=== PATIENT | female | born 1960 | race Caucasian/White ===

== ENCOUNTER → 2020-03-15 10:42 | Outpatient (CLI) | payer BC, SELFPAY ==
--- NOTE | ~2020-03-15 | XR_ITS ---
EXAMINATION: XR lumbar spine 2-3V DATE: 03/15/2020 11:05 INDICATION: Low back pain TECHNIQUE: Anteroposterior and lateral views of the lumbar spine, and cone-down lateral view of the l umbosacral junction were obtained. COMPARISON: None. FINDINGS: There are 18 degrees of lumbar levoscoliosis. There is no fracture. There is mild of interv ertebral disc space height throughout the lumbar spine. Small degenerative osteophytes project from t he anterior endplates of multiple vertebral bodies. There is moderate facet osteoarthritis of the low er lumbar spine. Surgical clips in the right upper quadrant are likely from prior cholecystectomy. IMPRESSION: 1. Mild lumbar spondylosis without acute findings. Reviewed, dictated and finalized at location A. 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
== END ==
PROVIDERS: PCP Family Medicine; Visit Provider Family Medicine
DX: M47.896 Other spondylosis, lumbar region (principal)
CPT/HCPCS: 72100

== ENCOUNTER → 2020-07-11 09:15 | Outpatient (CLI) | payer BC, SELFPAY ==
--- NOTE | ~2020-07-11 | XR_ITS ---
EXAMINATION: HAND-JAMAAL ARTHRITIS 3+VIEWS DATE: 07/11/2020 09:39 INDICATION: Bilateral hand pain TECHNIQUE: Posteroanterior, lateral, and oblique views of the left and of the right hands as well as a ballcatchers view of both hands were obtained. COMPARISON: None. FINDINGS: Bone alignment is normal. No fracture. Polyarticular osteoarthritis characterized by nonuniform joint space narrowing and/or small marginal osteophytes, moderate severity at the lateral first carpal met acarpal joints and mild at the bilateral triscaphe, bilateral first metacarpophalangeal and multiple bilateral predominantly distal interphalangeal joints. No erosions to suggest an inflammatory arthrit is. IMPRESSION: 1. Polyarticular osteoarthritis with typical distribution in both hands, moderate severity at the jamaal ateral first carpal metacarpal joints and otherwise mild. Reviewed, dictated and finalized at location B. 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 Polyarticular osteoarthritis with typical distribution in both hands, modera te severity at the bilateral first carpal metacarpal joints and otherwise mild.
== END ==
PROVIDERS: PCP Family Medicine; Visit Provider Physician Assistant Medical
DX: M19.041 Primary osteoarthritis, right hand (principal); M19.042 Primary osteoarthritis, left hand
CPT/HCPCS: 73130

== ENCOUNTER 2021-02-24 15:35 | Emergency (ER) | payer OTHER, BC, SELFPAY ==
--- NOTE | ~2021-02-24 | XR_ITS ---
EXAMINATION: XR wrist RT min 3V DATE: 02/24/2021 16:07 INDICATION: Ulnar sided right wrist pain. Wrist injury. TECHNIQUE: 4 views of right wrist were obtained. COMPARISON: Right hand radiographs 07/11/2020 FINDINGS: Bone alignment is normal. No fracture. There is mild osteoarthritis of first carpometacarpa l joint. IMPRESSION: 1. Mild osteoarthritis of first carpometacarpal joint. Reviewed, dictated and finalized at location A.
[2021-02-24 15:48] VITALS: BP 137/74; PULSE 68; RESP 20; TEMP 36.6; O2SAT 99
--- NOTE | 2021-02-24 16:14 | ED.UPPEXIN ---
HPI - Extremity Injury (Upper) General Chief Complaint: Extremity Injury, Upper Stated Complaint: right wrist pain Time Seen by Provider: 02/24/21 16:14 Source: patient Mode of arrival: ambulatory Limitations: no limitations History of Present Illness HPI narrative: Irene Levi is a 60 yo female with a PMH of hypertension who comes to [facility] with a painful right wrist and fingers 4 and 5 due to hitting arm on counter yesterday at work. Related Data Home Medications Medication Instructions Recorded Confirmed alprazolam 0.5 mg tablet 0.5 mg PO BID PRN 05/30/20 02/24/21 zonisamide 50 mg capsule 100 mg PO DAILY cap 05/30/20 02/24/21 Allergies Allergy/AdvReac Type Severity Reaction Status Date / Time morphine Allergy Severe CHEST PAIN Verified 02/24/21 16:01 HYDROCODONE BIT AdvReac Unknown N/V Uncoded 02/24/21 16:01 Review of Systems Review of Systems: CONSTITUTIONAL: Denies fever, chills, sweats. EYES: Denies visual changes, redness, discharge. ENT: Denies rhinorrhea, congestion, sore throat, otalgia. CARDIOVASCULAR: Denies chest pain, palpitations, edema. RESPIRATORY: Denies dyspnea, wheezing, cough GASTROINTESTINAL: Denies abdominal pain, nausea, vomiting, diarrhea. GENITOURINARY: Denies dysuria, hematuria, abnormal discharge SKIN: Denies rash or itching. NEUROLOGIC: Denies numbness, or focal weakness. PSYCHIATRIC: Denies anxiety or depression. 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 There is no relevant family history pertinent to the presenting complaint. Exam Narrative: GENERAL: This is a well-nourished, well-developed patient, in mild distress. HEAD: normocephalic, atraumatic. EYES: Sclera clear/white. Vision is grossly intact. EARS: External ears normal. Hearing grossly intact. NOSE: External nose normal without nasal discharge, nares without redness, no rhinorrhea. THROAT: Mucous membranes moist, NECK: Neck supple, non-tender CARDIOVASCULAR: Regular rate and rhythm without murmurs, gallops, or rubs. RESPIRATORY: Clear to auscultation. Breath sounds equal bilaterally. No wheezes, rales, or rhonchi. GASTROINTESTINAL: Abdomen soft, SKIN: warm, intact with no suspicious lesions or rash, good texture and turgor. NEURO: awake, alert, and oriented to person, place and time. There were no obvious focal neurologic abnormalities. Steady gait EXTREMITIES: Normal range of motion. Right lateral wrist has swelling around the radius, erythema, feels weaker finger 4 and 5 although able to move the fingers BACK: Nontender without deformity Course Course Emergency Course: Patient comes for evaluation of right wrist pain after hitting it yesterday at work stating that it hurts when she tries to lift with X-ray of right wrist shows no fracture, there is mild osteoarthritis of the first carpometacarpal joint Ananth wrap placed on wrist given directions for rice and to use Tylenol for pain relief (has hypertension so should not use ibuprofen) Vital Signs Vital signs: Vital Signs Temperature 97.8 F 02/24/21 15:48 Pulse Rate 68 02/24/21 15:48 Respiratory Rate 20 02/24/21 15:48 Blood Pressure 137/74 02/24/21 15:48 Pulse Oximetry 99 02/24/21 15:48 Te
== END 2021-02-24 16:40 | disposition home or self-care (01) ==
PROVIDERS: Emergency Provider Nurse Practitioner
DX: M25.531 Pain in right wrist (principal); M19.072 Primary osteoarthritis, left ankle and foot; E66.01 Morbid (severe) obesity due to excess calories; Z68.41 Body mass index [BMI] 40.0-44.9, adult; G61.9 Inflammatory polyneuropathy, unspecified
CPT/HCPCS: 73110; 99213; G0463

== ENCOUNTER 2021-04-19 15:29 | Emergency (ER) | payer BC, SELFPAY ==
[2021-04-19 15:44] VITALS: BP 139/84; PULSE 73; RESP 20; TEMP 35.9; O2SAT 99
--- NOTE | 2021-04-19 16:21 | ED.LOWEXIN ---
HPI - Extremity Injury (Lower) General Chief Complaint: Extremity Injury, Lower Stated Complaint: let foot pain Source: patient and RN notes reviewed Mode of arrival: ambulatory History of Present Illness HPI Narrative: This is a 58-year-old female who presents to urgent care with complaints of left foot pain according to patient she has a history of arthritis that she normally takes Tylenol to relieve her pain this time he did not relieve her pain. Patient notes that her pain was so bad that she had to come here to our . Patient denies any type of injury to the affected foot she notes that when she flex her foot upward her pain increases. Related Data Allergies Allergy/AdvReac Type Severity Reaction Status Date / Time morphine Allergy Severe CHEST PAIN Verified 04/19/21 15:35 HYDROCODONE BIT AdvReac Unknown N/V Uncoded 04/19/21 15:35 Review of Systems Review of Systems: A 14 organ system Review of Systems was performed and pertinent positives included in the HPI, otherwise remaining ROS is negative. 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 HEAD: normocephalic, atraumatic. EYES: PERRL. Sclera clear/white. Vision is grossly intact. EARS: External ears normal, auditory canals clear and without drainage, TMs normal without perforation. Hearing grossly intact. NOSE: External nose normal with no obvious nasal discharge, nares without redness, no rhinorrhea. THROAT: Mucous membranes moist, posterior pharynx clear. NECK: Neck supple, non-tender without lymphadenopathy, masses or thyromegaly. CARDIOVASCULAR: Regular rate and rhythm without murmurs, gallops, or rubs. RESPIRATORY: Clear to auscultation. Breath sounds equal bilaterally. No wheezes, rales, or rhonchi. GASTROINTESTINAL: Abdomen soft, non-tender, nondistended. Bowel sounds are active. No hepato-splenomegaly, or palpable masses. No guarding. SKIN: warm, intact with no suspicious lesions or rash, good texture and turgor. NEURO: awake, alert, and oriented to person, place and time. There were no obvious focal neurologic abnormalities. Steady gait EXTREMITIES: Limited range of motion to the left foot tenderness to the top of the foot. no edema. No calf tenderness. Negative Homans sign bilaterally. No neurovascular deficiency noted, no obvious injury, capillary refill within normal limits, pulses palpable BACK: Nontender without deformity or crepitance. No flank tenderness. Course Course Emergency Course: Patient will be treated for arthritis with tramadol and Flexeril. Vital Signs Vital signs: Vital Signs Temperature 96.6 F L 04/19/21 15:44 Pulse Rate 73 04/19/21 15:44 Respiratory Rate 20 04/19/21 15:44 Blood Pressure 139/84 04/19/21 15:44 Pulse Oximetry 99 04/19/21 15:44 Temperature 96.6 F L 04/19/21 15:44 Pulse Rate 73 04/19/21 15:44 Respiratory Rate 20 04/19/21 15:44 Blood Pressure 139/84 04/19/21 15:44 Pulse Oximetry 99 04/19/21 15:44 MDM - Extremity Injury (Lower) Differential Diagnosis Differential diagnosis: Likely ankle sprain and strain, acute internal derangement of knee and other (Arthritis) Discharge Plan Discharge Clinical Impression: Arthritis of foot, left Patient Disposition: Home, Self-Care Condition: Stable Instructions: Antibiot
== END 2021-04-19 16:50 | disposition home or self-care (01) ==
PROVIDERS: Emergency Provider Nurse Practitioner; PCP Family Medicine
DX: M19.072 Primary osteoarthritis, left ankle and foot (principal); E66.01 Morbid (severe) obesity due to excess calories; Z68.41 Body mass index [BMI] 40.0-44.9, adult; G62.9 Polyneuropathy, unspecified
CPT/HCPCS: 99213; G0463

== ENCOUNTER 2023-09-18 14:10 | Outpatient (CLI) | payer OTHER, SELFPAY ==
--- NOTE | ~2023-09-18 | MR_ITS ---
EXAMINATION: MR brain/brain stem wo con DATE: 09/18/2023 15:40 INDICATION: Chronic migraine without aura. Not intractable. TECHNIQUE: Magnetic resonance imaging (MRI) of the brain and brainstem was performed without intraven ous contrast. COMPARISON: Brain MRI 12/22/2015 FINDINGS: There are scattered areas of nonspecific increased T2-weighted signal intensity in the cere bral white matter, which is within normal limits for the patient's age. There is no intracranial hemo rrhage, acute infarction, or abnormal intracranial mass lesion. The ventricles are normal in size. Th e paranasal sinuses are clear. The mastoid air cells are normal. There are likely changes of ocular l ens replacement surgeries. IMPRESSION: 1. Normal aging brain. Reviewed, dictated and finalized at location A. IMPRESSION: 1. Normal aging brain.
[2023-09-18 16:51] LABS: Hematocrit 39.5 % (37.0-47.0); Hemoglobin 11.9 g/dL (12.0-15.0); Mean Corpuscular HGB Conc 30.1 g/dl (32-36); Mean Corpuscular Hemoglobin 24.5 pg (26-34); Mean Corpuscular Volume 81.3 fl (80-100); Mean Platelet Volume 11.5 fl (7.4-10.4); Platelet Count Result 324 k/mm3 (150-375); Red Blood Count 4.86 M/mm3 (4.2-5.4); Red Cell Distribution Width 16.6 % (11.5-14.5); White Blood Count 10.4 K/mm3 (4.5-10.0)
[2023-09-18 17:16] LABS: Iron 52 ug/dL (37-170)
[2023-09-18 17:26] LABS: Percent Iron Saturation 12 % (20-50)
== END 2023-09-18 14:11 | disposition home or self-care (01) ==
PROVIDERS: PCP Family Medicine; Visit Provider Nurse Practitioner Adult Health
DX: D64.9 Anemia, unspecified (principal); G43.709 Chronic migraine without aura, not intractable, without status migrainosus
CPT/HCPCS: 36415; 70551; 83540; 83550; 85027

== ENCOUNTER 2023-11-20 12:21 | Outpatient (CLI) | payer OTHER, SELFPAY ==
--- NOTE | ~2023-11-20 | MM_ITS ---
EXAMINATION: MM screening amelia BI w albert HISTORY: Screening TECHNIQUE: Craniocaudal and mediolateral oblique 3-D tomosynthesis images were obtained and synthetic 2-D images were generated. CAD analysis was submitted and interpreted. COMPARISON: No prior studies for comparison. BREAST PARENCHYMAL COMPOSITION: Not Dense: Breast are almost entirely fatty. FINDINGS: There are small scattered masses in the left breast. There are no suspicious masses, calcif ications or architectural distortion in the right breast to suggest malignancy. IMPRESSION: 1. Small scattered left breast masses. 2. Additional mammographic views and possible breast ultrasound are recommended. BI-RADS Category 0: Incomplete: Needs additional imaging evaluation. Reviewed, dictated and finalized at location B. IMPRESSION: 1. Small scattered left breast masses. 2. Additional mammographic views and possible breast ultrasound are recommended . BI-RADS Category 0: Incomplete: Needs additional imaging evaluation.
== END 2023-11-20 12:22 ==
LOC: MICIMG 12:22
PROVIDERS: PCP Family Medicine; Visit Provider Nurse Practitioner Adult Health
DX: Z12.31 Encounter for screening mammogram for malignant neoplasm of breast (principal); R92.8 Other abnormal and inconclusive findings on diagnostic imaging of breast
CPT/HCPCS: 77063; 77067

== ENCOUNTER 2023-12-17 08:46 | Outpatient (CLI) | payer OTHER, SELFPAY ==
--- NOTE | ~2023-12-17 | MMUS_ITS ---
EXAMINATION: MM diagnostic amelia LT w albert, US breast LT complete HISTORY: Follow-up left breast masses TECHNIQUE: Additional 3-D tomosynthesis images of Not dense: There are scattered areas of fibroglandu lar density. were performed and synthetic 2-D images were generated. CAD analysis was submitted and i nterpreted. High resolution complete left breast ultrasound was performed. COMPARISON: 11/20/2023 BREAST PARENCHYMAL COMPOSITION: Not dense: There are scattered areas of fibroglandular density. FINDINGS: MAMMOGRAPHIC FINDINGS: There is a small cluster of masses in the upper outer quadrant of the left breast, middle third. Ther e is a small irregular nodule which appears to be at the skin surface in the lower outer quadrant of the left breast, middle third. There are no suspicious calcifications or architectural distortion. ULTRASOUND: Complete US of all 4 quadrants of the left breast and retroareolar region was reviewed. At 2:00, 8 cm from the nipple there is a 2 mm cyst likely corresponding to be mammographic finding in the upper ou ter quadrant. No correlate is identified for the lesion in the lower outer quadrant near the skin kameron face, likely benign. IMPRESSION: 1. Probable benign findings. 2. Recommend 6 month follow-up diagnostic left mammogram and left breast ultrasound. BI-RADS category 3, probably benign findings. Reviewed, dictated and finalized at location B. IMPRESSION: 1. Probable benign findings. 2. Recommend 6 month follow-up diagnostic left mammogram and left breast ultras ound. BI-RADS category 3, probably benign findings.
== END 2023-12-17 08:47 ==
LOC: MICIMG 08:47
PROVIDERS: PCP Family Medicine; Visit Provider Nurse Practitioner Adult Health
DX: N63.20 Unspecified lump in the left breast, unspecified quadrant (principal); R92.8 Other abnormal and inconclusive findings on diagnostic imaging of breast
CPT/HCPCS: 76641; 77061; 77065; G0279

== ENCOUNTER 2024-04-15 11:20 | Outpatient (CLI) | payer OTHER, SELFPAY ==
--- NOTE | ~2024-04-15 | XR_ITS ---
3 VIEWS LUMBAR SPINE Ordering provider: [place] Arriola NP History: . M54.9 - Dorsalgia, unspecified . Comparison: None. FINDINGS: VERTEBRAL BODIES:Levoscoliosis. Degenerative changes of the spine. No visible fracture or subluxatio n. DISK SPACES: Mild narrowing of the disc L4-L5. Otherwise, normal. Multilevel facet joint disease. SOFT TISSUES: Normal. IMPRESSION: No acute osseous abnormality lumbar spine. Levoscoliosis. Degenerative changes of the spine. Reviewed, dictated and finalized at location A. R
--- NOTE | ~2024-04-15 | XR_ITS ---
XR cervical spine 4-5V Ordering provider: [place] Arriola NP History: . R52 - Pain, unspecified . Comparison: None. FINDINGS: VERTEBRAL BODIES: Normal height and alignment. No visible fracture or subluxation. The dens is intact . Degenerative changes of the spine. DISK SPACES: Narrowing of the disc C4-C5, C5-C6 and C6-C7. Narrowing of the right C6-C7 intervertebral foramen. Mild narrowing of the left C5-C6 and C6-C7 inter vertebral foramina. Multilevel uncovertebral joint osteoarthritic changes. PARASPINOUS SOFT TISSUES: No prevertebral soft tissue swelling. IMPRESSION: No acute osseous abnormality cervical spine. Multilevel degenerative disc disease with intervertebral foraminal narrowing. Reviewed, dictated and finalized at location A. 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
== END 2024-04-15 11:21 | disposition home or self-care (01) ==
PROVIDERS: PCP Family Medicine
DX: M50.323 Other cervical disc degeneration at C6-C7 level (principal); M50.322 Other cervical disc degeneration at C5-C6 level; M41.86 Other forms of scoliosis, lumbar region; M47.816 Spondylosis without myelopathy or radiculopathy, lumbar region
CPT/HCPCS: 72050; 72100

== ENCOUNTER 2024-04-18 11:47 | Outpatient (CLI) | payer OTHER, SELFPAY ==
--- NOTE | ~2024-04-18 | US_ITS ---
Left knee ULTRASOUND Ordering provider: Florida Arriola NP History: . hx of benign tumors removed upper extremities . Comparison: None. FINDINGS impression: Multiple small lymph nodes are noted in the left lower neck measuring 0.5 x 0.4 x 0.4 cm, 0.5 x 0.3 x 0.5 cm, 0.3 x 0.2 x 0.3 cm. Reviewed, dictated and finalized at location A. 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
== END 2024-04-18 11:48 | disposition home or self-care (01) ==
LOC: MICIMG 11:48
PROVIDERS: PCP Family Medicine
DX: R22.1 Localized swelling, mass and lump, neck (principal)
CPT/HCPCS: 76536

== ENCOUNTER 2024-06-04 15:51 | Outpatient (CLI) | payer OTHER, SELFPAY ==
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
== END 2024-06-04 15:52 | disposition home or self-care (01) ==
PROVIDERS: PCP Family Medicine; Visit Provider Nurse Practitioner Family
DX: R42 Dizziness and giddiness (principal); S14.109A Unspecified injury at unspecified level of cervical spinal cord, initial encounter; V89.2XXA Person injured in unspecified motor-vehicle accident, traffic, initial encounter; G44.52 New daily persistent headache (NDPH); M47.892 Other spondylosis, cervical region
CPT/HCPCS: 72141

== ENCOUNTER 2024-07-25 14:30 | Emergency (ER) | payer OTHER, SELFPAY ==
[2024-07-25 14:42] VITALS: BP 151/79; PULSE 74; RESP 18; TEMP 36.4; O2SAT 97
--- NOTE | 2024-07-25 14:47 | ED.URI ---
HPI - URI/Sore Throat General Chief Complaint: Upper Respiratory Infection Stated Complaint: Sinus Time Seen by Provider: 07/25/24 14:47 Source: patient Mode of arrival: ambulatory Limitations: no limitations History of Present Illness HPI Narrative: 64 yo F presents with c/o cough, congestion, fatigue, fever, headache for 4 days. No CP or SOB. All systems reviewed and negative except as noted above. Related Data Allergies Allergy/AdvReac Type Severity Reaction Status Date / Time morphine Allergy Severe CHEST PAIN Verified 07/25/24 14:46 hydrocodone AdvReac Intermediate Nausea Verified 07/25/24 14:46 rizatriptan AdvReac Intermediate Headache Verified 07/25/24 14:46 topiramate AdvReac Intermediate Headache Verified 07/25/24 14:46 Review of Systems Review of Systems: CONSTITUTIONAL: Reports fever, chills, or sweats. EYES: Denies visual changes, redness, or discharge. ENT: reports rhinorrhea, congestion. Denies sore throat, or otalgia. CARDIOVASCULAR: Denies chest pain, palpitations, or edema. RESPIRATORY: reports cough. Denies dyspnea. GASTROINTESTINAL: Denies abdominal pain, nausea, vomiting, or diarrhea. GENITOURINARY: Denies dysuria or hematuria. SKIN: Denies rash or itching. MUSCULOSKELETAL: Denies back pain, joint pain, or myalgia. NEUROLOGIC: Denies headache, numbness, or weakness. PSYCHIATRIC: Denies anxiety or depression. All other systems reviewed are negative, except as documented in HPI. 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 Achilles tendon contracture Arthritis of foot, left Family History Family History Father Cancer of pancreas Grandparent Cerebrovascular accident Mother Heart disease Cerebrovascular accident Dementia Sibling Hypertension Social History Social History Smoking packs per day: 0.5 Smoking cigarettes per day: 10.0 Years smoked: 10 Smoking pack-years: 5.00 Smoking status: Former smoker Tobacco type: cigarettes Second hand tobacco smoke exposure: Yes Alcohol intake: current Substance use: never Substance use type: does not use Do You Feel Safe in your Home?: Yes Lack of Transportation: No Lack of Food: Never True Current Housing: I Have Housing Concerned About Future Housing: No Difficulty Paying Gas/Electric Bills: No Difficulty Paying for Meds: No Currently Unemployed: No Difficulty w/ Childcare or Family Care: No Living arrangements: with family Comments At time of signature, agree with nursing past medical, surgical, social and family history. There is no relevant family history pertinent to the presenting complaint. Exam Narrative: GENERAL: This is a well-nourished, well-developed patient, in no apparent distress. HEAD: normocephalic, atraumatic. EYES: PERRL. Sclera clear/white. Vision is grossly intact. EARS: External ears normal, auditory canals clear and without drainage, TMs normal without perforation. Hearing grossly intact. NOSE: External nose normal with clear nasal drainage THROAT: Mucous membranes moist, posterior pharynx clear. NECK: Neck supple, non-tender without lymphadenopathy, masses or thyromegaly. CARDIOVASCULAR: Regular rate and rhythm without murmurs, gallops, or rubs. RESPIRATORY: Clear to auscultation. Breath sounds equal bilaterally. No wheezes, rales, or rhonchi. SKIN: warm, Dry, intact with no suspicious lesions or rash, good texture and turgor. NEURO: awake, alert, and oriented to person, place and time. There were no obvious focal neurologic abnormalities. EXTREMITIES: No joint tenderness, effusion, or edema noted. Course Course Level of Care: Express Care Visit Vital Signs Vital signs: Vital Signs Temperature 36.4 C 07/25/24 14:42 Pulse Rate 74 07/25/24 14:42 Respiratory Rate 18 07/25/24 14:42 Blood Pressure 151/79 H 07/25/24 14:42 Pulse Oximetry 97 07/25/24 14:42 Oxygen Delivery Room Air 07/25/24 14:42 Temperature 36.4 C 07/25/24 14:42 Pulse Rate 74 07/25/24 14:42 Respiratory Rate 18 07/25/24 14:42 Blood Pressure 151/79 H 07/25/24 14:42 Pulse Oximetry 97 07/25/24 14:42 Oxygen Delivery Room Air 07/25/24 14:42 reviewed MDM - URI/Sore Throat MDM Narrative Medical decision making narrative: patient positive for COVID-19. Lungs clear to auscultation. No respiratory distress. Will treat with paxlovid. Alert, nontoxic. Please be advised this is a medical document. It is intended for [id number] communication. It is written in medical language and may contain unfamiliar abbreviations or verbiage. Medical documents are intended to carry relevant information, facts as evident, and the clinical opinion of the practitioner at the time of the encounter. This report may have been done utilizing a voice recognition system. Attempts have been made to correct errors. However, there may be uncorrected grammatical, spelling, and recognition errors present. The file time of this note does not necessarily represent the time of service. Differential Diagnosis Differential diagnosis: Likely upper respiratory infection, sinusitis, viral infection, influenza and other ( COVID-19) Lab Data Labs: Lab Results 07/25/24 Range/Units 14:58 POC Influenza A Ag Negative (Negative) POC Influenza B Ag Negative (Negative) POC SARS CoV-2 Ag Positive (Negative) Discharge Plan Discharge Clinical Impression: COVID-19 Patient Disposition: Home, Self-Care Condition: Stable Instructions: COVID-19 (Coronavirus Disease 2019) (ED) Additional Instructions: Your covid test was positive. Take paxlovid as prescribed. Take ibuprofen or tylenol every 6 to 8 hours as needed for pain. See your doctor if symptoms not improving. If you have chest pain or shortness of breath go to the ER. Patient Language: Albanian Prescriptions: New Paxlovid 300 mg (150 mg x 2)-100 mg tablets,dose pack See Rx Instructions .ROUTE .COMPLEX Qty: 30 0RF Rx Instructions: take TWO 150 mg tablets of nirmatrelvir with ONE 100 mg tablet of ritonavir twice daily for 5 days No Action duloxetine 60 mg capsule,delayed release(DR/EC) 60 mg PO DAILY Qty: 90 0RF cyclobenzaprine 10 mg tablet 10 mg PO .hs PRN (Reason: muscle spasm) Qty: 30 0RF albuterol sulfate 90 mcg/actuation HFA aerosol inhaler 2 inh inhalation Q4-6H PRN (Reason: shortness of breath or wheezing) Qty: 6.7 0RF lisinopril 20 mg tablet 20 mg PO DAILY Qty: 90 1RF gabapentin 300 mg capsule 300 mg PO QHS Qty: 30 0RF Follow-up/Referrals: Jonathan Finney MD [Primary Care Provider] - Time of Disposition: 14:54
[2024-07-25 14:59] LABS: EDCOVIDSCREEN Positive (Negative); EDINFLUASCREEN Negative (Negative); EDINFLUBSCREEN Negative (Negative)
== END 2024-07-25 15:05 | disposition home or self-care (01) ==
PROVIDERS: Emergency Provider Nurse Practitioner Family; PCP Family Medicine
DX: U07.1 COVID-19 (principal); Z87.891 Personal history of nicotine dependence; G62.9 Polyneuropathy, unspecified; M19.072 Primary osteoarthritis, left ankle and foot; E66.01 Morbid (severe) obesity due to excess calories; Z68.41 Body mass index [BMI] 40.0-44.9, adult
CPT/HCPCS: 87426; 87804; 99213; G0463